=== PATIENT | female | born 1980 | race Caucasian/White ===

== ENCOUNTER → 2018-10-30 | Emergency (ER) | payer OTHER ==
[~2018-10-30] VITALS: Ht 162.6 cm; Wt 77.1 kg
[~2018-10-30] MED LIST: ACID CONTROLLER10 MG PO; ALLER-FEX180 MG PO; BUCALSEP SPRAY30 ML MM; CEFTIN250 MG PO; CELEBREX100 MG PO; CELEXA40 MG PO; CLONAZEPAM1 MG PO; CYCLOBENZAPRINE10 MG PO; FOLBEE PLUS CZ1 EACH PO; GILTUSS LIQUID237 M1 PO; KETO10TA2 PO; LEVOTHYROXINE25 MCG PO; ORPHENADRINE C100 MG PO; SKELAXIN800 MG PO; SUCRALFATE PO
== END | disposition home or self-care (01) ==
LOC: ER 12:20
DX: M54.5 Low back pain (principal)

== ENCOUNTER → 2018-12-21 | Emergency (ER) | payer OTHER ==
[~2018-12-21] VITALS: Ht 162.6 cm; Wt 77.1 kg
[~2018-12-21] MED LIST changes: +CELEXA20 MG PO; +DIAZEPAM10 MG PO
== END | disposition home or self-care (01) ==
LOC: ER 20:43
DX: M54.5 Low back pain (principal)